=== PATIENT | male | born 1955 | race Caucasian/White ===

== ENCOUNTER 2016-08-15 09:21 | Emergency (ER) | payer BC ==
[2016-08-15 09:36] VITALS: BP 134/85
[2016-08-15] MEDS ORDERED: Acetaminophen TAB* 325 MG PO ONE (10:34)
--- NOTE | 2016-08-15 10:37 | UC ---
Throat Pain/Nasal Jason HPI - HPI Summary HPI Summary: pt c/o sinus pressure, nasal congestion and fever X 1 day. completed 10 prescription one day ago for Bronchitis given by PCP. States he woke today with nasal congestion and sinus pressure and fever yesterday and continues today. Has history of sinusitis, and sinus surgery - History of Current Complaint Chief Complaint: UCGeneralIllness Stated Complaint: SINUS,SORE THROAT Time Seen by Provider: 08/15/16 10:20 Hx Obtained From: Patient Onset/Duration: Sudden Onset, Lasting Days Severity: Mild Associated Signs & Symptoms: Positive: Sinus Discomfort, Fever Related History: Prior ENT Surgery - Allergies/Home Medications Allergies/Adverse Reactions: Allergies Allergy/AdvReac Type Severity Reaction Status Date / Time No Known Allergies Allergy Verified 08/15/16 09:29 Home Medications: Home Medications Atorvastatin* [Lipitor 10 MG*] 5 mg PO DAILY 08/15/16 [History Confirmed ] Hydrochlorothiazide TAB* [Hydrodiuril TAB*] 12.5 mg PO DAILY 08/15/16 [History Confirmed 08/15/16] Lisinopril TAB* [Prinivil TAB 10 MG*] 10 mg PO DAILY 08/15/16 [History Confirmed 08/15/16] LoraTADine TAB(NF) [Claritin TAB(NF)] 10 mg PO DAILY 08/15/16 [History Confirmed 08/15/16] Multivitamins/Minerals TAB* [Thera M Plus TAB*] 1 tab PO DAILY 08/15/16 [ History Confirmed 08/15/16] PMH/Surg Hx/FS Hx/Imm Hx Previously Healthy: Yes - history sinusitis and sinus surgery Cardiovascular History Of: Reports: Hypertension Respiratory History Of: Reports: Bronchitis - Surgical History Surgical History: Yes Surgery Procedure, Year, and Place: Detached Retina, 2016, [place]; Sinus, 2016 , [place] - Family History Known Family History: Positive: Cardiac Disease - Social History Lives: With Family Alcohol Use: None Substance Use Type: None Smoking Status (MU): Never Smoked Tobacco - Immunization History Most Recent Influenza Vaccination: April 2016 Review of Systems Constitutional: Fever, Chills Skin: Negative Eyes: Negative ENT: Sore Throat, Other - sinus tenderness Respiratory: Cough Cardiovascular: Negative Gastrointestinal: Negative Genitourinary: Negative Motor: Negative Neurovascular: Negative Musculoskeletal: Myalgia Neurological: Headache Psychological: Negative All Other Systems Reviewed And Are Negative: Yes Physical Exam Triage Information Reviewed: Yes Appearance: Well-Appearing Vital Signs: Initial Vital Signs Temp 100.4 F 08/15/16 09:27 Pulse 112 08/15/16 09:27 Resp 16 08/15/16 09:27 BP 134/85 08/15/16 09:27 Pulse Ox 99 08/15/16 09:27 Vital Signs Reviewed: Yes Eye Exam: Normal ENT Exam: Other ENT: Positive: Nasal congestion, Other: - maxillary sinus tenderness Neck exam: Normal Respiratory Exam: Normal Cardiovascular Exam: Normal Musculoskeletal Exam: Normal Neurological Exam: Normal Psychological Exam: Normal Skin Exam: Normal Throat Pain/Nasal Course/Dx - Differential Dx/Diagnosis Differential Diagnosis/HQI/PQRI: Influenza, Sinusitis, URI Provider Diagnoses: sinusitis Discharge - Discharge Plan Condition: Stable Disposition: HOME Prescriptions: Azithromycin TAB* [Zithromax TAB (Z-LOGAN) 250 mg #6 tabs] 2 tab PO .TODAY, THEN 1 DAILY #1 logan Patient Education Materials: Sinusitis (ED) Referrals: Antony Zelaya MD [Primary Care Provider] - Additional Instructions: Please follow up with your PCP or your ENT provider, Dr. Rosenberg.
== END 2016-08-15 10:58 | disposition home or self-care (01) ==
LOC: UCCORT 09:21
DX: J32.9 Chronic sinusitis, unspecified (principal); I10 Essential (primary) hypertension
CPT/HCPCS: 87502; 99202; A9270-GY; G0463